=== PATIENT | male | born 1970 ===

== ENCOUNTER 2019-03-17 13:40 | Emergency (ER) | payer SELFPAY ==
[~2019-03-17] VITALS: Ht 185.4 cm; Wt 108.9 kg
[~2019-03-17 13:40] MED LIST: AMOCLA875 PO; CRUTCH4 USE; CYCL10 PO; HYDACE5 PO; NAPR500 PO; NAPR550 PO; Norco 5-325 Ta1 EACH PO; OMEP20ER PO; RXOXYACE PO; TRAM50 PO; Veetids 500500 MG PO
[2019-03-17] MEDS ORDERED: Ultram50 MG PO (16:27)
[2019-03-17] MEDS ORDERED: NAPR550 PO (16:27)
== END 2019-03-17 16:27 | disposition home or self-care (01) ==
LOC: ER 13:40
DX: M25.511 Pain in right shoulder (principal); Z79.899 Other long term (current) drug therapy
CPT/HCPCS: 73030; 99283-25